=== PATIENT | male | born 1945 | race Caucasian/White ===

== ENCOUNTER 2021-06-30 18:05 | Emergency (ER) | payer MEDICARE, BC ==
[2021-06-30] MEDS ORDERED: traMADol 50 MG Tab PO ONE ×2 (18:06)
[2021-06-30] MEDS ORDERED: Ketorolac 30 MG/ML SDV IM STA (18:56)
[2021-06-30] MEDS ORDERED: traMADol 50 MG Tab PO STA (18:56)
== END 2021-06-30 20:05 | disposition home or self-care (01) ==
LOC: FB.ED 18:05
DX: S70.02XA Contusion of left hip, initial encounter (principal); R55 Syncope and collapse; W19.XXXA Unspecified fall, initial encounter; Y92.009 Unspecified place in unspecified non-institutional (private) residence as the place of occurrence of the external cause
CPT/HCPCS: 36415; 72100; 73502-LT; 80053; 82550; 84484; 85025; 93005; 96372; 99284-25; A9270-GY; J1885

== ENCOUNTER 2022-04-12 06:25 | Day surgery (SDC) | payer MEDICARE, BC ==
[~2022-04-12 06:25] MED LIST: Lactated Ringers 1,000 ML IV SCH; Sodium Chloride 0.9% 10 ML Syringe FLUSH PRN
[2022-04-12] MEDS ORDERED: Propofol 200 MG/20 ML SDV IV ONE (06:26)
== END 2022-04-12 08:50 | disposition home or self-care (01) ==
LOC: FB.SDS 06:25
PROVIDERS: ATTEND Surgery
DX: Z12.11 Encounter for screening for malignant neoplasm of colon (principal); K57.30 Diverticulosis of large intestine without perforation or abscess without bleeding; K42.0 Umbilical hernia with obstruction, without gangrene; E78.5 Hyperlipidemia, unspecified; E66.9 Obesity, unspecified; G47.30 Sleep apnea, unspecified; Z79.899 Other long term (current) drug therapy; Z98.890 Other specified postprocedural states; Z90.49 Acquired absence of other specified parts of digestive tract; Z87.891 Personal history of nicotine dependence; Z68.26 Body mass index [BMI] 26.0-26.9, adult
CPT/HCPCS: 00812-QZ; J2704; J7120